=== PATIENT | male | born 1955 | race Caucasian/White ===

== ENCOUNTER 2018-05-04 17:03 | Emergency (ER) | payer MEDICARE, OTHER ==
--- NOTE | 2018-05-04 17:16 | ED Physician Documentation ---
Abdominal Pain - HISTORIAN Historian: patient - HPI Stated Complaint: LLQ abdominal pain Chief Complaint: Abdominal Pain Onset: days ago (1) Duration: constant Timing: still present Context: denies: out of country travel, bad food, recent trauma Severity: moderate Quality: pain Associated Symptoms: denies: fever, chills, nausea, vomiting, diarrhea, sweating, loss of appetite, chest pain, testicular pain, back pain Exacerbated by: nothing Relieved by: other (Pain med decreased the pain to 8/10 ) Further Comments: yes (abdominal pain that started last night and he states the pain increased this afternoon but he states that he has had pain med prior to arrival and feels "sleepy" he did tell nurse prior to arrival he had 8/10 pain and now is a 2/10. He states he had a bowel movement this am and then two loose stools. Denies any sick contacts or injury. He denies passing any gas since this am. He had lunch at 1:30 pm and denies any nasuea.) - ROS CONST: no problems GI/: denies: constipation, problems urinating CVS/RESP: denies: shortness of breath, hurts to breath, cough EYES/ENT: none MS/SKIN/LYMPH: none NEURO/PSYCH: none - SOCIAL HX Smoking History: cigarettes Alcohol Use: none Drug Use: none - FAMILY HX Family History: none - PAST HX Past History: none Immunizations: UTD Home Medications: Ambulatory Orders Medication Instructions Recorded Aripiprazole [Abilify] 10 mg PO DAILY u2 03/11/14 Buspirone HCl [Buspar] 10 mg PO DAILY u2 03/11/14 Omeprazole 40 mg PO DAILY u2 03/11/14 Tamsulosin HCl 0.4 mg PO DAILY av 03/11/14 Gabapentin 300 mg PO TID 05/04/18 Allergies/Adverse Reactions: Allergies Allergy/AdvReac Type Severity Reaction Status Date / Time doxycycline Allergy Verified 05/04/18 17:37 - VITAL SIGNS Vital Signs: Vital Signs Temp Pulse Resp BP Pulse Ox 100.7 F H 99 H 18 113/65 99 05/04/18 17:15 05/04/18 20:30 05/04/18 20:30 05/04/18 20:30 05/04/18 20:30 - REVIEWED ASSESSMENTS Nursing Assessment Reviewed: Yes Vitals Reviewed: Yes Progress - Progress Progress: 1815: continues to deny any increase in pain. DG 1939: Dr Valencia accepting [facility] - Spouse and pt aware and agree to transfer DG ED Results Lab/Radiology - Lab Results Lab Results: Lab Results 05/04/18 05/04/18 05/04/18 17:28 17:28 17:28 WBC 3.30 K/ul L K/ul (4.00-12.00) RBC 4.02 M/ul M/ul (3.90-5.20) Hgb 13.0 g/dL g/dL (12.0-18.0) Hct 38.4 % % (37.0-53.0) MCV 95.0 fl fl (80.0-100.0) MCH 32.4 pg pg (28.0-34.0) MCHC 33.9 g/dL g/dL (30.0-36.0) RDW 12.3 % % (11.3-14.3) Plt Count 157 K/mm3 K/mm3 (130-400) Neut % (Auto) 79.2 % H % (39.0-79.0) Lymph % (Auto) 14.5 % L % (16.0-50.0) Patrick % (Auto) 3.8 % % (0.0-11.0) Eos % (Auto) 2.3 % % (0.0-6.8) Baso % (Auto) 0.2 (0.0-1.5) Neut # (Auto) 2.7 # k/uL # k/uL (1.4-7.7) Lymph # (Auto) 0.5 # k/uL L # k/uL (0.6-4.0) Patrick # (Auto) 0.1 # k/uL # k/uL (0.0-0.9) Eos # (Auto) 0.1 # k/uL # k/uL (0.0-0.6) Baso # (Auto) 0.0 # k/uL # k/uL (0.0-0.5) Sodium 131 mmol/L L mmol/L (136-145) Potassium 3.8 mmol/L mmol/L (3.5-5.1) Chloride 98 mmol/L mmol/L (98-107) Carbon Dioxide 27 mmol/L mmol/L (22-30) BUN 19 mg/dL mg/dL (9-20) Creatinine 1.44 mg/dL H mg/dL (0.66-1.25) Estimated Creat Clear 59 Est GFR ( Amer) > 60 (60 - ) Est GFR (Non-Af Amer) 52 L (60 - ) Glucose 118 mg/dL H mg/dL (74-106) Calcium 8.0 mg/dL L mg/dL (8.4-10.2) Total Bilirubin 0.5 mg/dL mg/dL (0.2-1.3) AST 34 U/L U/L (15-46) ALT 23 U/L U/L (13-69) Alkaline Phosphatase 66 U/L U/L (38-126) Total Protein 6.4 g/dL g/dL (6.3-8.2) Albumin 3.8 g/dL g/dL (3.5-5.0) Lipase 63 U/L U/L (23-300) - Radiology Radiology Impressions: The single view chest and 3 views of the abdomen Clinical history: Left lower quadrant pain Findings: Heart size is normal. There is a small nodular density in the right lower lobe likely noncalcified granuloma or scar. The lungs are otherwise clear. There is no pneumoperitoneum. Bowel gas pattern is nonspecific. No evidence of bowel obstruction. Impression: No acute disease in the chest or abdomen. Electronically signed on May 04, 2018 6:00:48 PM IMPROVEMENT SPECIALIST by: Jason Medrano - Orders Orders: ED Orders Category Date Time Status IV Started NOW Care 05/04/18 17:27 Active ABD SERIES PA CHEST [RAD] Stat Exams 05/04/18 17:[address] ABD & PELVIS W/ CON Stat Exams 05/04/18 18:01 Completed CBC/PLATELET/DIFF Routine Lab 05/04/18 17:28 Completed CMP Routine Lab 05/04/18 17:28 Completed LIPASE Stat Lab 05/04/18 17:28 Completed 0.9 % Sodium Chloride [Normal Saline] 1,000 ml Med 05/04/18 17:26 Discontinued IV NOW 0.9 % Sodium Chloride [Normal Saline] 1,000 ml Med 05/04/18 19:39 Discontinued IV Q1H Abdominal Pain Physical Exam - Physical Exam General Appearance: no acute distress, alert EENT: eye inspection normal, ENT inspection normal, dry mucous membranes NECK: normal inspection RESPIRATORY: no resp distress, chest non-tender, breath sounds normal CVS: reg rate & rhythm, heart sounds normal, equal pulses ABDOMEN: tenderness (with palpation LUQ and LLQ although is able to tolearate palpation ), absent BS, distended. No: rebound, guarding BACK: normal inspection, no CVA tenderness SKIN: warm/dry, normal color NEURO: oriented X3, other (falls asleep easily after discussion post pain med ) Vital Signs: Vital Signs Temp Pulse Resp BP Pulse Ox 100.7 F H 99 H 18 113/65 99 05/04/18 17:15 05/04/18 20:30 05/04/18 20:30 05/04/18 20:30 05/04/18 20:30 Discharge Clincal Impression: Partial bowel obstruction Qualifiers: Intestinal obstruction type: unspecified Qualified Code(s): K56.600 - Partial intestinal obstruction, unspecified as to cause Referrals: Damion Patrick [REFERRING] - 2 Days Condition: Fair Disposition: XFER SHT-TRM HOSP Decision to Admit: NO Date of Decison to Admit: 05/04/18 Decision Time: 19:40
[2018-05-04] MEDS ORDERED: 0.9 % SODIUM CHLORIDE 1,000 ML IV ONE ×2 (17:26→19:39)
[2018-05-04 17:55] LABS: EOSINOPHILS % 2.3 % (0.0-6.8); MEAN CORPUSCULAR HEMOGLOBIN 32.4 pg (28.0-34.0); MONOCYTES % 3.8 % (0.0-11.0)
[2018-05-04 17:56] LABS: BASOPHILS % 0.2 (0.0-1.5); NEUTROPHILS # 2.7 # k/uL (1.4-7.7)
[2018-05-04 17:58] LABS: eGFR (Non-African) 52
--- NOTE | 2018-05-04 18:33 | Diagnostic Imaging Report ---
BIJAN OVIEDO [facility] [address] [facility] [address] [place], [place]. [address] Report Submission Date: May 04, 2018 6:00:48 PM FOOTBALL COACH Patient Study Name: SU LANG Date: May 04, 2018 5:39:33 PM FOOTBALL COACH Modality Type: DX Gender: M Description: ABD SERIES PA CHEST : 51 Institution: [facility] Physician: BIJAN OVIEDO The single view chest and 3 views of the abdomen Clinical history: Left lower quadrant pain Findings: Heart size is normal. There is a small nodular density in the right lower lobe likely noncalcified granuloma or scar. The lungs are otherwise clear. There is no pneumoperitoneum. Bowel gas pattern is nonspecific. No evidence of bowel obstruction. Impression: No acute disease in the chest or abdomen. Electronically signed on May 04, 2018 6:00:48 PM FOOTBALL COACH by: Jason BRADEN
--- NOTE | 2018-05-04 18:40 | Diagnostic Imaging Report ---
BIJAN OVIEDO [facility] [address] [facility] [address] [place], [place]. [address] Report Submission Date: May 04, 2018 6:37:51 PM TECHNICIAN SUPPORT ENGINEER Patient Study Name: SU LANG Date: May 04, 2018 6:17:09 PM TECHNICIAN SUPPORT ENGINEER Modality Type: CT\SR Gender: M Description: CT ABD PELVIS W/ CON : 51 Institution: [facility] Physician: BIJAN OVIEDO CT abdomen pelvis with contrast History: Left lower quadrant pain since this morning. Technique: Transaxial computed tomographic images of the abdomen pelvis were obtained with contrast according to standard protocol. Findings: The lung bases are clear. The heart size is normal. Liver has a mildly nodular contour suggesting underlying hepatic parenchymal disease. There is recanalization of the umbilical vein. Small lobular hypoechoic dense lesion is seen in the posterior right hepatic lobe measuring 1.4 cm suggesting hemangioma. Tiny stones are present in the otherwise normal gallbladder. The pancreas spleen adrenals and bilateral kidneys are normal. Within the mid jejunum in the left side of the abdomen there is diffuse wall thickening of the bowel loop with adjacent mesenteric stranding resulting in proximal bowel dilation. Findings most consistent with focal enteritis. The appendix is normal. There is diffuse atherosclerosis of the aorta with a infrarenal abdominal aortic aneurysm measuring 3.3 cm. No adenopathy present. Small amount of free fluid is seen extending into the pelvis and left mid mesentery.. The bladder is normal. There is degenerative change in the lower lumbar spine. Impression: 1. Segment of diffuse thickening of the mid jejunum in the left side of the abdomen with mesenteric stranding and associated with proximal bowel dilation. Findings consistent with focal enteritis and resulting partial obstruction.. 2. Free mesenteric and pelvic fluid. 3. 3.3 cm infrarenal abdominal aortic aneurysm. 4. Nodular surface contour of the liver with recanalization of the umbilical vein consistent with underlying hepatic parenchymal disease. Electronically signed on May 04, 2018 6:37:51 PM TECHNICIAN SUPPORT ENGINEER by: Jose Alejandro BRADEN
[2018-05-04 21:31] VITALS: BP 113/65
== END 2018-05-04 20:00 | disposition short-term general hospital (02) ==
LOC: ED 17:03
DX: K56.600 Partial intestinal obstruction, unspecified as to cause (principal)
CPT/HCPCS: 36415; 74022; 74177; 80053; 83690; 85025; 99285; J7030; Q9967